=== PATIENT | female | born 1980 | race Caucasian/White ===

== ENCOUNTER 2022-04-23 08:16 | Outpatient (CLI) | payer OTHER, SELFPAY | END 2022-04-23 08:17 | disposition home or self-care (01) | LOC: FRMREF 08:19 | PROVIDERS: PCP Emergency Medicine; Visit Provider Obstetrics & Gynecology | DX: N92.1 Excessive and frequent menstruation with irregular cycle (principal) | CPT/HCPCS: 84443 ==

== ENCOUNTER 2022-04-29 15:45 | Outpatient (CLI) | payer OTHER, SELFPAY ==
--- NOTE | 2022-04-29 16:00 | CRLHL7_ITS ---
For Patients: As a result of the Century Cures Act, medical imaging exams and procedure reports are released immediately into your electronic medical record. You may view this report before your referring provider. If you have questions, please contact your health care provider. INDICATION: MENOMETRORRHAGIA COMPARISON: CT 04/23/2020 TECHNIQUE: 2D burnett scale and color Doppler images were acquired of the pelvis using a transabdominal and transvaginal approach. FINDINGS: The uterus measures 9.1 x 4.0 x 4.4 cm. Mild heterogeneity of the uterine echotexture without leiomyoma. The endometrium measures 6 millimeters. Mild heterogeneity of the endometrial stripe at the uterine fundus noted along with a trace amount of endometrial fluid. The right ovary measures 2.4 x 0.9 x 1.1 cm in size and the left ovary measures 3.3 x 2.5 x 3.3 cm. A simple left ovarian cyst is present measuring 2.9 x 2.2 x 2.9 cm. The ovaries demonstrate normal arterial and venous blood flow on color Doppler analysis. There are no suspicious fluid collections within the cul-de-sac. IMPRESSION: Endometrial thickness 6 millimeters. Mild heterogeneity of the fundal endometrium with a trace amount of endometrial fluid. No uterine fibroid. 2.9 cm simple left ovarian cyst. Dictated by Leroy Luna MD @ 04/30/2022 6:59:19 AM (Electronically Signed)
== END 2022-04-29 15:46 | disposition home or self-care (01) ==
LOC: US 15:46
PROVIDERS: PCP Emergency Medicine; Visit Provider Obstetrics & Gynecology
DX: N92.1 Excessive and frequent menstruation with irregular cycle (principal); N83.202 Unspecified ovarian cyst, left side; R93.89 Abnormal findings on diagnostic imaging of other specified body structures
CPT/HCPCS: 76830; 76856

== ENCOUNTER 2022-07-25 08:26 | Outpatient (CLI) | payer OTHER, SELFPAY ==
--- NOTE | 2022-07-25 08:45 | CRLHL7_ITS ---
For Patients: As a result of the Cures Act, medical imaging exams and procedure reports are released immediately into your electronic medical record. You may view this report before your referring provider. If you have questions, please contact your health care provider. DIGITAL DIAGNOSTIC RIGHT MAMMOGRAM USING TOMOSYNTHESIS AND COMPUTER-AIDED DETECTION RIGHT BREAST ULTRASOUND CLINICAL HISTORY: RIGHT breast mass/asymmetry. COMPARISON: 07/21/2022, 04/12/2019. TECHNIQUE: Digital RIGHT mammogram in two projections. Tomosynthesis and CAD utilized. Real-time ultrasound imaging of RIGHT breast with imaging documentation. Scanning was performed by both the technologist and the radiologist. BREAST COMPOSITION: The breasts are heterogeneously dense, which may obscure small masses. FINDINGS: 3D spot compression CC/MLO RIGHT breast mammogram images submitted. Decreased conspicuity of previously noted retroareolar asymmetric density. No architectural distortion. No suspicious calcifications. Targeted RIGHT breast ultrasound performed in the retroareolar plane. Normal dense fibroglandular tissue is present without fibrocystic change or suspicious mass. No adenopathy. Normal RIGHT axillary lymph nodes. IMPRESSION: No evidence of malignancy. RECOMMENDATIONS: Annual BILATERAL screening mammography. Results and recommendations discussed with the patient. BI-RADS Category 2: Benign A lay language report of this examination will be provided to the patient. Dictated by Leroy Luna MD @ 07/25/2022 11:02:23 AM j/Dictated by: Leroy Luna MD @ 07/25/2022 11:02:00 AM (Electronically Signed)
--- NOTE | 2022-07-25 09:15 | CRLHL7_ITS ---
For Patients: As a result of the Cures Act, medical imaging exams and procedure reports are released immediately into your electronic medical record. You may view this report before your referring provider. If you have questions, please contact your health care provider. PLEASE SEE DIGITAL DIAGNOSTIC RIGHT MAMMOGRAM PERFORMED SAME DAY CRL:[facility] ely/Dictated by: Leroy Luna MD @ 07/25/2022 11:02:00 AM (Electronically Signed)
== END 2022-07-25 08:27 | disposition home or self-care (01) ==
LOC: MAMMO 08:27
PROVIDERS: PCP Emergency Medicine; Visit Provider Emergency Medicine
DX: N63.10 Unspecified lump in the right breast, unspecified quadrant (principal); R92.8 Other abnormal and inconclusive findings on diagnostic imaging of breast
CPT/HCPCS: 76642; 77065; G0279

== ENCOUNTER 2023-01-14 08:36 | Outpatient (CLI) | payer OTHER, SELFPAY | END 2023-01-14 08:37 | disposition home or self-care (01) | LOC: NFLDREF 01-15 09:20 | PROVIDERS: PCP Emergency Medicine; Referring Provider Emergency Medicine; Visit Provider Emergency Medicine | DX: Z01.818 Encounter for other preprocedural examination (principal) | CPT/HCPCS: 80048; 85027 ==

== ENCOUNTER 2023-01-28 06:03 | Day surgery (SDC) | payer OTHER, SELFPAY ==
[2023-01-28] VITALS (7 sets, daily range): BP systolic 96–119; BP diastolic 65–78; PULSE 54–87; RESP 14–16; TEMP 36.3–36.9; O2SAT 97–100; BMI 26.4
[2023-01-28 06:34] LABS: Ur HCG Qualitative* Negative (Negative)
[2023-01-28] MEDS: SODIUM CHLORIDE 0.9 % (FLUSH) 10 ML SYRINGE IVF (06:54)
[2023-01-28] MEDS: LACTATED RINGERS 1000 ML 1,000 ML 100 ML IV (06:55)
--- NOTE | 2023-01-28 07:20 | W.PM.H&PU ---
History & Physical Update History & Physical Update H&P Reviewed and patient assessed: No changes noted
--- NOTE | 2023-01-28 07:21 | P.PCN_ITS ---
Procedure Note Time Seen by Provider: 08:03 Date Seen: 01/28/23 Date of procedure: 01/28/23 Will [facility] bill your pro fee for this procedure?: Yes Procedure: Preoperative diagnosis: 42 yo with metrorrhagia Postoperative diagnosis: Same. Procedure: Hysteroscopy, dilation and curettage. Anesthesia: Mac and paracervical block. Surgeon: Naima Vázquez Assist: None Estimated blood loss: 3 mL IV Fluid: 500 mL Specimen: Endometrial curettings, sent to path. Complications: Incidental uterine perforation Findings: On exam under anesthesia: The cervix and vagina appear normal. The uterus was anteflexed position, approximately 8-9 week size, mobile and without masses or nodularity palpable. Adnexa were without mass or fullness palpable bilaterally. On hysteroscopy: Normal-appearing endometrium, both fallopian tube orifices were visualized. No other abnormalities noted. The uterus sounded to 9 cm. Cervical length 4 cm. Cavity length: 5 cm. Procedure: Naima was taken to the operating room where conscious sedation was found to be adequate. She was placed in a dorsal lithotomy position and an exam under anesthesia was performed with the findings stated above. She was then prepped and draped in a normal sterile manner. An a bivalve is sterile speculum was placed in the vaginal canal. A paracervical block was placed using 0.5% Marcaine: 5 mL were injected at the 4 and 8 o'clock positions on the cervix. A long Allis clamp was placed on the anterior lip of the cervix. The cervix was then dilated to Hegar 6. Uterus sounded to 9 cm. The cervix measured 4 cm. There for the cavity length was 5 cm. The Truclear hysteroscope was advanced into the uterus. A diagnostic hysteroscopy performed with normal saline as the insufflation medium. Findings are stated above. The Truclear incisor was then advanced into the camera. And the curettage performed with this incisor. The curettage took approximately [] min. The cavity appeared normal once the curettage was performed completed. The hysteroscope was removed. The cervix was then dilated to Hegar 8. The Betty device was advanced into the uterus. When the device was set in the uterus the gate mortiser operator felt a pop consistent with a uterine puncture/perforation. The cavity check was not passed so the ablation was not performed. The hysteroscope was readvanced into the uterus and the perforation was small enough that it could not be visualized with the hysteroscope. The hysteroscope was then removed. The Allis clamp removed from the anterior lip of the cervix. Nothing was needed to obtain hemostasis The patient tolerated this procedure well. Sponge, lap and instrument counts were correct x2 at the end of the procedure and the patient was taken to the recovery area in stable condition.
[2023-01-28] MEDS: BUPIVACAINE 0.5% 30 ML INJECTION (07:45)
--- NOTE | 2023-01-28 08:06 | W.ANESCHARGE ---
Anesthesia Charges Start Date/Time Anesthesia Start Date: 01/28/23 Anesthesia Start Time: 07:19 Stop Date/Time Anesthesia Stop Date: 01/28/23 Anesthesia Stop Time: 08:04
--- NOTE | 2023-01-28 08:23 | W.ANESCHARGE ---
Anesthesia Charges Start Date/Time Anesthesia Start Date: 01/28/23 Anesthesia Start Time: 07:19 Stop Date/Time Anesthesia Stop Date: 01/28/23 Anesthesia Stop Time: 08:04
[2023-01-28] MEDS: fentaNYL 100 MCG/2 ML inj 50 MCG IVP (08:39)
[2023-01-28] MEDS: HYDROmorphone 0.5 mg/0.5 ml inj IVP (08:57)
== END 2023-01-28 09:35 | disposition home or self-care (01) ==
LOC: OR 06:03
PROVIDERS: PCP Emergency Medicine; Visit Provider Obstetrics & Gynecology
PROC: 0UF98ZZ Fragmentation in Uterus, Via Natural or Artificial Opening Endoscopic (ICD-10-PCS; CPT 58558; principal; 2023-01-28 07:15)
DX: N92.1 Excessive and frequent menstruation with irregular cycle (principal); N99.71 Accidental puncture and laceration of a genitourinary system organ or structure during a genitourinary system procedure
CPT/HCPCS: 58558; 00952; 81025; 88305; J0665; J1100; J1170; J2250; J2405; J2704; J3010; J7120

== ENCOUNTER 2023-03-26 07:40 | Day surgery (SDC) | payer OTHER, SELFPAY ==
[2023-03-26] MEDS: LACTATED RINGERS 1000 ML 1,000 ML 100 ML IV (07:50)
[2023-03-26 08:02] VITALS: BMI 25.7
[2023-03-26 08:10] LABS: Ur HCG Qualitative* Negative (Negative)
--- NOTE | 2023-03-26 08:24 | P.PCN_ITS ---
Procedure Note Time Seen by Provider: 09:30 Date Seen: 03/26/23 Date of procedure: 03/26/23 Will [facility] bill your pro fee for this procedure?: Yes Procedure: Preoperative diagnosis: 42 yo with irregular and extended menstrual cycles. Postoperative diagnosis: Same. Procedure: Hysteroscopy. Anesthesia: Mac and paracervical block. Surgeon: Naima Vázquez Assist: None Estimated blood loss: 1 mL IV Fluid: 600 mL Specimen: none Findings: On exam under anesthesia: The cervix and vagina appear normal. The uterus was anteflexed position, approximately 8 week size, mobile and without masses or nodularity palpable. Adnexa were without mass or fullness palpable bilaterally. On hysteroscopy: Normal-appearing cavity. No other abnormalities noted. The uterus sounded to 8 cm. Cervical length 4 cm. Cavity length: 4. Incidental uterine perforation. Procedure: Naima was taken to the operating room where conscious sedation was found to be adequate. She was placed in a dorsal lithotomy position and an exam under anes thesia was performed with the findings stated above. She was then prepped and draped in a normal sterile manner. An a bivalve is sterile speculum was placed in the vaginal canal. A paracervical block was placed using 0.5% Marcaine: 5 mL were injected at the 4 and 8 o'clock positions on the cervix. A long Allis clamp was placed on the anterior lip of the cervix. The cervix was then dilated to Hegar 6. The Truclear hysteroscope was advanced into the uterus. A diagnostic hysteroscopy performed with normal saline as the insufflation medium. Findings are stated above. No curettage was performed as the patient had a curettage performed in January 2023. The hysteroscope was removed. Uterus sounded to 8 cm. The cervix measured 4 cm. There for the cavity length was 4 cm. The cervix was then dilated to Hegar 8. The Betty device was advanced into the uterus. The cavity check failed so the hysteroscope was re placed in the uterus in noted to have a small perforation at the right side of the fundus likely from the right apex of the Betty. The hysteroscope was then removed. The Allis clamp removed from the anterior lip of the cervix. Nothing was needed to obtain hemostasis. The patient tolerated this procedure well. Sponge, lap and instrument counts were correct x2 at the end of the procedure and the patient was taken to the recovery area in stable condition. Patient received 30 mg of Toradol IV prior to the ablation.
--- NOTE | 2023-03-26 08:24 | W.PM.H&PU ---
History & Physical Update History & Physical Update H&P Reviewed and patient assessed: No changes noted
[2023-03-26 08:32] VITALS: BP 115/72; PULSE 83; RESP 16; TEMP 37; O2SAT 96
[2023-03-26] MEDS: SODIUM CHLORIDE 0.9 % (FLUSH) 10 ML SYRINGE IVF (08:37)
[2023-03-26] MEDS: CEFAZOLIN 2 GM INJ IVP (08:56)
[2023-03-26] MEDS: BUPIVACAINE 0.5% 30 ML INJECTION (08:59)
[2023-03-26 09:18] VITALS: BP 108/67; PULSE 73; RESP 16; TEMP 36.4; O2SAT 99
[2023-03-26 09:30] VITALS: BP 119/74; PULSE 74; RESP 16; O2SAT 99
[2023-03-26 09:45] VITALS: BP 115/74; PULSE 72; RESP 16; O2SAT 99
[2023-03-26] MEDS: OXYCODONE 5 MG TABLET PO (09:55)
[2023-03-26 10:00] VITALS: BP 115/72; PULSE 72; RESP 16; O2SAT 99
--- NOTE | 2023-03-26 10:05 | W.ANESCHARGE ---
Anesthesia Charges Start Date/Time Anesthesia Start Date: 03/26/23 Anesthesia Start Time: 08:45 Stop Date/Time Anesthesia Stop Date: 03/26/23 Anesthesia Stop Time: 09:17
--- NOTE | 2023-03-26 10:57 | W.ANESCHARGE ---
Anesthesia Charges Start Date/Time Anesthesia Start Date: 03/26/23 Anesthesia Start Time: 08:45 Stop Date/Time Anesthesia Stop Date: 03/26/23 Anesthesia Stop Time: 09:17
== END 2023-03-26 10:09 | disposition home or self-care (01) ==
PROVIDERS: PCP Emergency Medicine; Visit Provider Obstetrics & Gynecology
PROC: 0U5B8ZZ Destruction of Endometrium, Via Natural or Artificial Opening Endoscopic (ICD-10-PCS; CPT 58558; principal; 2023-03-26 09:15)
DX: N92.1 Excessive and frequent menstruation with irregular cycle (principal); N99.71 Accidental puncture and laceration of a genitourinary system organ or structure during a genitourinary system procedure
CPT/HCPCS: 58555; 00952; 81025; A9270; J0665; J0690; J1885; J2250; J2704; J3010; J7120

== ENCOUNTER 2023-04-01 07:53 | Outpatient (CLI) | payer OTHER, SELFPAY | END 2023-04-01 07:54 | disposition home or self-care (01) | LOC: NFLDREF 04-02 07:18 | PROVIDERS: PCP Emergency Medicine; Referring Provider Emergency Medicine; Visit Provider Physician Assistant Medical | DX: N39.0 Urinary tract infection, site not specified (principal) | CPT/HCPCS: 87086 ==

== ENCOUNTER 2023-08-09 09:55 | Outpatient (CLI) | payer OTHER, SELFPAY | END 2023-08-09 09:56 | disposition home or self-care (01) | LOC: NFLDREF 21:34 | PROVIDERS: PCP Emergency Medicine; Referring Provider Emergency Medicine; Visit Provider Family Medicine | DX: R39.9 Unspecified symptoms and signs involving the genitourinary system (principal); N39.0 Urinary tract infection, site not specified | CPT/HCPCS: 87086; 87186 ==

== ENCOUNTER 2023-12-07 14:57 | Outpatient (CLI) | payer OTHER, SELFPAY | END 2023-12-07 14:58 | disposition home or self-care (01) | LOC: NFLDREF 12-09 04:26 | PROVIDERS: PCP Emergency Medicine; Referring Provider Emergency Medicine; Visit Provider Physician Assistant | DX: R30.0 Dysuria (principal); B37.31 Acute candidiasis of vulva and vagina; N30.01 Acute cystitis with hematuria | CPT/HCPCS: 87086 ==

== ENCOUNTER 2024-08-07 11:52 | Outpatient (CLI) | payer OTHER, SELFPAY | END 2024-08-07 11:53 | disposition home or self-care (01) | LOC: NFLDREF 16:54 | PROVIDERS: PCP Emergency Medicine; Referring Provider Emergency Medicine | DX: R30.0 Dysuria (principal); N39.0 Urinary tract infection, site not specified; N89.8 Other specified noninflammatory disorders of vagina | CPT/HCPCS: 87086; 87186 ==

== ENCOUNTER 2024-09-28 08:58 | Outpatient (CLI) | payer OTHER, SELFPAY ==
[2024-09-30 00:54] LABS: HPV Source Cervix
[2024-10-04 09:19] LABS: Pap Test Digital Imaging Done
== END 2024-09-28 08:59 | disposition home or self-care (01) ==
PROVIDERS: PCP Emergency Medicine; Visit Provider Obstetrics & Gynecology
DX: N92.1 Excessive and frequent menstruation with irregular cycle (principal); F52.0 Hypoactive sexual desire disorder; Z12.4 Encounter for screening for malignant neoplasm of cervix; Z11.51 Encounter for screening for human papillomavirus (HPV); Z13.6 Encounter for screening for cardiovascular disorders; Z13.1 Encounter for screening for diabetes mellitus; Z13.0 Encounter for screening for diseases of the blood and blood-forming organs and certain disorders involving the immune mechanism
CPT/HCPCS: 80061; 84403; 84443; 87624; 87625; 88141; 88142; 88175